=== PATIENT | male | born 1975 | race Caucasian/White ===

== ENCOUNTER 2019-04-24 12:07 | Emergency (ER) | payer MEDICAID ==
[~2019-04-24] VITALS: Ht 177.8 cm; Wt 61.4 kg
[2019-04-24 12:13] VITALS: Ht 177.8 cm; Wt 61.4 kg
[2019-04-24] MEDS ORDERED: MINOCYCLINE HCL75 M1 PO (12:31)
[2019-04-24 12:43] VITALS: BP 142/84
== END 2019-04-24 12:44 | disposition home or self-care (01) ==
LOC: D.ER 12:07
DX: L02.413 Cutaneous abscess of right upper limb (principal); F17.210 Nicotine dependence, cigarettes, uncomplicated